=== PATIENT | female | born 1980 | race African-American/Black ===

== ENCOUNTER 2022-01-01 19:59 | Emergency (ER) | payer SELFPAY ==
[~2022-01-01] VITALS: Ht 175.3 cm; Wt 68.0 kg
[2022-01-01 23:27] VITALS: BP 126/89
[2022-01-01] MEDS ORDERED: POLY10DR RIGHTEYE (23:40)
[2022-01-01] MEDS ORDERED: METH-653 MT (23:40)
[2022-01-01] MEDS ORDERED: IBUP-2028 MT (23:40)
[2022-01-01] MEDS ORDERED: IBUPROFEN 400MG TABLET PO ONE (23:45)
[2022-01-02] MEDS ORDERED: METHOCARBAMOL 500MG TABLET PO SCH
== END 2022-01-02 00:04 | disposition home or self-care (01) ==
LOC: ER 19:59
DX: S00.212A Abrasion of left eyelid and periocular area, initial encounter (principal); M25.552 Pain in left hip; M79.652 Pain in left thigh; D64.9 Anemia, unspecified; V43.52XA Car driver injured in collision with other type car in traffic accident, initial encounter; Y93.89 Activity, other specified; Y92.410 Unspecified street and highway as the place of occurrence of the external cause
CPT/HCPCS: 71045; 72170; 76705; 93880; 99284